=== PATIENT | female | born 1970 | race African-American/Black ===

== ENCOUNTER 2017-05-25 22:50 | Emergency (ER) | payer OTHER ==
[~2017-05-25] VITALS: Ht 160 cm; Wt 117.4 kg
[~2017-05-25 22:50] MED LIST: AMOXICILLIN500 MG OR; AMOXICILLIN500 MG PO; ANTIVERT25 MG OR; BACTRIM DS1 TAB PO; FERRAPLUS 90 PO; IRON325 MG; MECLIZINE12.5 M1 PO; MEDDOSEPAK PO; NAPROSYN500 MG PO; NO HOME MEDS; PERCOCET 5/325M1 TAB PO; TRAMADOL HCL50 MG PO; VICOPROFEN PO
[2017-05-26] MEDS ORDERED: NORFLEX30 MG/M1 IJ (01:04)
[2017-05-26] MEDS ORDERED: ORPHENADRINE100 MG PO (01:04)
[2017-05-26] MEDS ORDERED: PERCOCET 5/325M1 TAB PO (01:04)
[2017-05-26 01:30] VITALS: BP 144/90
== END 2017-05-26 01:30 | disposition home or self-care (01) | DRG 552 ==
LOC: ED 22:50
DX: M54.17 Radiculopathy, lumbosacral region (principal); M79.605 Pain in left leg

== ENCOUNTER 2017-11-18 04:58 | Emergency (ER) | payer OTHER ==
[~2017-11-18] VITALS: Ht 160 cm; Wt 108.0 kg
[~2017-11-18 04:58] MED LIST changes: +NORFLEX30 MG/M1 IJ; +ORPHENADRINE100 MG PO
[2017-11-18 05:44] LABS: INFLUENZA A NONE DETECTED (NONE DETECT); INFLUENZA B NONE DETECTED (NONE DETECT)
[2017-11-18] MEDS ORDERED: NAPROSYN500 MG PO (06:36)
[2017-11-18] MEDS ORDERED: ZPAK PO (06:36)
[2017-11-18 06:46] VITALS: BP 128/87
== END 2017-11-18 06:47 | disposition home or self-care (01) | DRG 866 ==
LOC: ED 04:58
PROVIDERS: Emergency Medicine
DX: B34.9 Viral infection, unspecified (principal); G89.29 Other chronic pain; M79.605 Pain in left leg; R51 Headache; R50.9 Fever, unspecified; R53.81 Other malaise; R05 Cough

== ENCOUNTER 2019-10-29 | Day surgery (SDC) | payer OTHER ==
[~2019-10-29] MED LIST changes: +ZPAK PO
[2019-10-29] MEDS ORDERED: ALEVE220 M2 PO (07:21)
[2019-10-29] MEDS ORDERED: IBUPROFEN600 MG PO (07:22)
== END 2019-10-29 09:05 | disposition home or self-care (01) | DRG 951 ==
PROC: 0DJD8ZZ Inspection of Lower Intestinal Tract, Via Natural or Artificial Opening Endoscopic (ICD-10-PCS; principal; 2019-10-29)
DX: Z12.11 Encounter for screening for malignant neoplasm of colon (principal); K64.8 Other hemorrhoids

== ENCOUNTER 2022-07-01 07:08 | Emergency (ER) | payer MEDICARE ==
[~2022-07-01] VITALS: Ht 160 cm; Wt 118.1 kg
[~2022-07-01 07:08] MED LIST changes: +ALEVE220 M2 PO; +IBUPROFEN600 MG PO
[2022-07-01] MEDS ORDERED: FLEXERIL5 M1 PO (09:05)
[2022-07-01 09:12] VITALS: BP 132/90
== END 2022-07-01 09:12 | disposition home or self-care (01) ==
LOC: ED 07:08
DX: M79.661 Pain in right lower leg (principal)

== ENCOUNTER 2022-09-14 19:51 | Emergency (ER) | payer MEDICARE ==
[~2022-09-14] VITALS: Ht 160 cm; Wt 118.0 kg
[~2022-09-14 19:51] MED LIST changes: +FLEXERIL5 M1 PO
[2022-09-14 20:18] VITALS: BP 144/84
[2022-09-14 20:30] VITALS: BP 154/71
[2022-09-14 20:44] LABS: HEMATOCRIT 40.6 % (37.0-47.0); HEMOGLOBIN 12.9 g/dl (12.0-16.0); IMMATURE GRANULOCYTES 0.1 % (0.0-5.0); MEAN CELL VOLUME 100.2 fL CALC (80.0-100.0); MEAN CORPUSCULAR HGB 31.9 pG CALC (26.0-32.0); MEAN CORPUSCULAR HGB CONC 31.8 g/dL CAL (32.0-36.0); NEUT# 5.31 thou/uL (2.00-7.15); RED BLOOD COUNT 4.05 mill/uL (4.20-5.60); RED CELL DISTRI WIDTH 14.1 % (11.5-15.5)
[2022-09-14 20:45] VITALS: BP 151/79
[2022-09-14 20:49] LABS: URINE BILIRUBIN - DIPSTICK NEGATIVE (NEGATIVE); URINE BLOOD DIPSTICK SMALL (NEGATIVE); URINE COLOR YELLOW; URINE GLUCOSE - DIPSTICK NEGATIVE (NEGATIVE); URINE KETONE NEGATIVE (NEGATIVE); URINE LEUK ESTERASE NEGATIVE (NEGATIVE); URINE PROTEIN - DIPSTICK NEGATIVE (NEG-TRACE); URINE UROBILINOGEN - DIPSTICK 0.2 E.U./dL (0.2)
[2022-09-14 20:50] LABS: URINE NITRITE - DIPSTICK NEGATIVE (Negative)
[2022-09-14 20:54] LABS: URINE RBC 0-2 RBC/hpf (0-5); URINE SQUAMOUS EPITHELIAL CELL RARE EPI/hpf (0-FEW)
[2022-09-14 21:05] LABS: ALKALINE PHOSPHATASE 62 u/l (38-126); ANION GAP 12 (6-22 (CALC)); BILIRUBIN, TOTAL 0.3 mg/dL (0.0-1.4); BUN 13 mg/dL (7-17); BUN/CREATININE RATIO 20 (12-20 (CALC)); CARBON DIOXIDE 28 mmol/l (22-30); CHLORIDE 106 mmol/l (95-108); CREATININE 0.7 mg/dL (0.5-1.0); GFR FOR AFR.AMER. > 60 ML/MIN (>=60 (CALC)); GFR OTHER RACES > 60 ML/MIN (>=60 (CALC)); LIPASE 101 u/l (23-300); POTASSIUM 4.4 mmol/l (3.5-5.1); SGOT/AST 25 u/l (14-36); SODIUM 141 mmol/l (137-146); TOTAL PROTEIN 7.2 g/dL (6.3-8.2)
[2022-09-14 21:06] LABS: ALBUMIN 4.3 g/dL (3.2-5.0)
[2022-09-14 23:52] VITALS: BP 151/79
[2022-09-14] MEDS ORDERED: TRAMADOL HCL50 MG PO (23:52)
[2022-09-14] MEDS ORDERED: TAMSULOSIN0.4 MG PO (23:52)
[2022-09-14] MEDS ORDERED: PROMETHAZINE HY25 M1 PO (23:52)
== END 2022-09-15 00:14 | disposition home or self-care (01) ==
LOC: ED 19:51
PROVIDERS: Family Medicine
DX: R10.31 Right lower quadrant pain (principal); R31.9 Hematuria, unspecified
CPT/HCPCS: Q9967

== ENCOUNTER 2023-05-29 18:30 | Emergency (ER) | payer OTHER ==
[~2023-05-29] VITALS: Ht 160 cm; Wt 128.0 kg
[~2023-05-29 18:30] MED LIST changes: +PROMETHAZINE HY25 M1 PO; +TAMSULOSIN0.4 MG PO
[2023-05-29 18:38] VITALS: BP 116/87
[2023-05-29] MEDS ORDERED: MEDDOSEPAK PO (20:01)
[2023-05-29] MEDS ORDERED: METHOCARBAMOL500 MG PO (20:01)
[2023-05-29 20:08] VITALS: BP 116/87
== END 2023-05-29 20:12 | disposition home or self-care (01) | DRG 554 ==
LOC: ED 18:30
DX: M17.12 Unilateral primary osteoarthritis, left knee (principal)

== ENCOUNTER 2025-01-11 18:48 | Emergency (ER) | payer OTHER ==
[~2025-01-11] VITALS: Ht 160 cm; Wt 118.0 kg
[~2025-01-11 18:48] MED LIST changes: +METHOCARBAMOL500 MG PO; +VICTOZA18 MG/3 ML SC; +VOLTAREN - GENE75 MG PO
[2025-01-11] MEDS ORDERED: KETOROLAC TROMETHAMINE 30 MG/ML SDV IM ONE (19:25)
[2025-01-11] MEDS ORDERED: NAPROXEN500 MG PO (20:08)
[2025-01-11 20:36] VITALS: BP 121/43
== END 2025-01-11 20:36 | disposition home or self-care (01) | DRG 556 ==
LOC: ED 18:48
DX: M25.562 Pain in left knee (principal)